=== PATIENT | male | born 1960 | race Caucasian/White ===

== ENCOUNTER 2023-09-29 19:26 | Emergency (ER) | payer BC, SELFPAY ==
[2023-09-29 19:26] VITALS: BMI 31.1
[2023-09-29 19:31] VITALS: BP 159/91
[2023-09-29 20:30] VITALS: BP 152/92
[2023-09-29 21:00] VITALS: BP 152/86
[2023-09-29 22:09] VITALS: BP 139/86
--- NOTE | 2023-09-29 22:13 | ED.GENMED ---
History of Present Illness
General
Chief Complaint: Visual Problem
Source: patient
Exam Limitations: none
Time Seen by Provider: 09/29/23 20:01
Nursing documentation reviewed up to this point in time: agreed with
Travel History
Have you had any contact with someone who has COVID-19?: No
Do you have any symptoms of coronavirus? Fever > 100 degrees, chills, cough, shortness of breath, sore throat, loss of taste or smell, muscle aches, or headache?: No
History of Present Illness
History of Present Illness:
Patient to ED with complaint of vision changes. Symptoms started yesterday. Initially noted flashing lights. Today notes floaters. reports thin vertical line covered by a transparent veil left lateral visual field. No prior history of same. No
history of trauma. No fever/chlls. Reports mild headache reliever with OTC meds. Brought to ED by spouse for eval.
Past History
Past History
ED Past Medical History: Arrthythmia (Paroxysmal atrial fibrillation, 3 episodes in his 30s.), GERD, HTN, Hypercholesterolemia, Valvular disease, Other (Sigmoid diverticulosis, sigmoid diverticulitis June 2017.) and Other (BPH, bladder
diverticulum)
ED Past Surgical History: None
Social History
Tobacco: Non-smoker
Personal:
Living: with family
Employment: Employed
Family History
Family History: Other (Noncontributory)
Review of Systems
Review of Systems
Allergies reviewed?: Yes
All Other Systems: ROS reviewed and negative except as documented in HPI and ROS
Constitutional: Reports no symptoms
EENT: Reports other (flashing lights, floaters left eye)
Respiratory: Reports no symptoms
Cardiac: Reports no symptoms
ABD/GI: Reports no symptoms
: Reports no symptoms
Musculoskeletal: Reports no symptoms
Skin: Reports no symptoms
Neurological: Reports no symptoms
Psychiatric: Reports no symptoms
Phy Exam
General Physical Exam
General Presentation: well appearing and no apparent distress
General age: appears stated age
General Skin: warm and dry
General Habitus: normal
General Mental: alert
Eye Exam
Eye Exam: PERRL, EOMI, conjunctiva normal, disc sharp and globe normal
Right 20/: 25
Left 20/: 60 (Patient has contact lens in place Left lens used for reading)
Neurological Exam
Neurological Exam: alert, oriented x3 and CN II-XII intact
Musculoskeletal Exam
Musculoskeletal Exam: full ROM
Skin Exam
Skin Exam: normal color and warm/dry
Psychiatric Exam
Psychiatric Exam: normal mood/affect
Course
Vital Signs
Initial and Last Documented VS:
Initial Vital Signs
Temp Pulse Resp BP Pulse Ox
98.5 F 98 16 159/91 100
09/29/23 19:31 09/29/23 19:31 09/29/23 19:31 09/29/23 19:31 09/29/23 19:31
Last Documented Vital Signs
Temp Pulse Resp BP Pulse Ox
98.5 F 98 16 139/86 98
09/29/23 19:31 09/29/23 19:31 09/29/23 19:31 09/29/23 22:09 09/29/23 22:09
*Critical Care Note
Total Time (30-74mins, 75-104mins- exclusive of procedures): Not Applicable
Update Note
Update Note:
Case discussed with Dr. Erickson via tiger text. WIll follow up with patient in office on Sunday. Pateint is agreeable to plan.
ED Attending Note
-
Portions of this chart may have been created with voice recognition software.� Occasional wrong word or��sound alike� substitutions may have occurred due to the inherent limitations of voice recognition software.
Discharge Plan
Departure
Patient Disposition: Home (Routine Discharge)
Date of Disposition: 09/29/23
Time of Disposition: 21:35
Patient with high blood pressure during this ER visit?: No
Condition: Good
Covid-19: Not Applicable
Discharge Problem:
Posterior vitreous detachment
Instructions: Floaters in the Eye
Prescriptions:
No Action
buspirone 5 MG tablet
5 mg PO BID
metformin 500 MG tablet
500 mg PO DAILY
metoprolol succinate 50 MG tablet extended release 24 hr
75 mg PO DAILY
tamsulosin 0.4 MG capsule
0.4 mg PO DAILY
aspirin 81 MG tablet,chewable
81 mg PO DAILY
fluoxetine 20 MG capsule
20 mg PO DAILY
finasteride 5 MG tablet
5 mg PO DAILY
ezetimibe-simvastatin 1 TABLET tablet
1 tab PO DAILY
metronidazole 500 MG tablet
500 mg PO TID Qty: 29 0RF
levofloxacin 500 MG tablet
500 mg PO DAILY Qty: 9 0RF
Referrals:
Messi Montgomery I., [Family Provider] -
Kareem Erickson MD [Active] - 10/01/23 (Call the office on Sunday to schedule your appointment time)
Interventions
Interventions:
*Risk Screen - Suicide Last Done: 09/29/23 19:31
*General Assessment Last Done: 09/29/23 19:31
*Neglect/Abuse Screening Last Done: 09/29/23 19:31
ED- Fall Risk Assessment Last Done: 09/29/23 22:12
*ED COVID-19 Vaccine History Last Done: 09/29/23 20:29
*Nursing Disposition Last Done: 09/29/23 22:12
ED- Neurological Assessment Last Done: 09/29/23 20:26
ED-EENT Assessment Last Done: 09/29/23 20:17
ED Swallowing Screen Last Done: 09/29/23 20:26
== END 2023-09-29 22:13 | disposition home or self-care (01) ==
LOC: EMR 19:26
PROVIDERS: EMERGENCY PHYSICIAN Emergency Medicine; FAMILY PHYSICIAN Internal Medicine
DX: H43.819 Vitreous degeneration, unspecified eye (principal); I48.0 Paroxysmal atrial fibrillation; K21.9 Gastro-esophageal reflux disease without esophagitis; I10 Essential (primary) hypertension; I38 Endocarditis, valve unspecified; N40.0 Benign prostatic hyperplasia without lower urinary tract symptoms; E78.00 Pure hypercholesterolemia, unspecified
CPT/HCPCS: 99282

== ENCOUNTER → 2023-10-05 10:33 | Outpatient (REF) | payer BC, SELFPAY | LOC: HWRAD 10:33 | PROVIDERS: ATTENDING PHYSICIAN Internal Medicine | DX: D72.820 Lymphocytosis (symptomatic) (principal); R79.89 Other specified abnormal findings of blood chemistry; I10 Essential (primary) hypertension; E11.9 Type 2 diabetes mellitus without complications | CPT/HCPCS: 71270; 74178; Q9967 ==

== ENCOUNTER → 2024-05-06 14:03 | Outpatient (REF) | payer MEDICARE, BC, SELFPAY | LOC: RCS 14:03 | PROVIDERS: ATTENDING PHYSICIAN Internal Medicine Cardiovascular Disease; FAMILY PHYSICIAN Internal Medicine | DX: Q23.1 Congenital insufficiency of aortic valve (principal); I10 Essential (primary) hypertension; I71.21 Aneurysm of the ascending aorta, without rupture | CPT/HCPCS: 93306 ==

== ENCOUNTER → 2025-03-17 13:45 | Outpatient (REF) | payer MEDICARE, BC, SELFPAY | LOC: HWRAD 13:45 | PROVIDERS: ATTENDING PHYSICIAN Internal Medicine | DX: M54.50 Low back pain, unspecified (principal) | CPT/HCPCS: 72114 ==